=== PATIENT | male | born 1990 | race Caucasian/White ===

== ENCOUNTER 2016-09-09 13:09 | Inpatient (IN) | payer OTHER ==
[~2016-09-09] VITALS: Ht 188 cm; Wt 77.2 kg
[~2016-09-09 13:09] MED LIST: POLY17PO6 PO
[2016-09-09 13:11] VITALS: BP 145/66; PULSE 71; RESP 20; O2SAT 99
[2016-09-09 13:33] LABS: BASOPHILS % (AUTO) 0.3 % (0-3); EOSINOPHILS % (AUTO) 1.8 % (0-5); MONOCYTES % (AUTO) 8.3 % (4-12); Mean Corpuscular Hemoglobin 29.5 pg (27.0-35.0); Mean Corpuscular Volume 85.5 fL (81-100); NEUTROPHILS % (AUTO) 80.3 % (40-74); Platelet Count 256 bil/L (150-400)
--- NOTE | 2016-09-09 13:55 | ED.REPORT ---
HPI-Abd Pain M Under 40 Date of Service September 09, 2016 ED Provider: Dr. Bhupendra Aparicio MD Patient is a 26 year old male with a history of abdominal discomfort who [facility] complaining of intermittent periumbilical abdominal pain that began 3 days ago. His pain has been constant since onset and is exacerbated by movement. His symptoms became increasingly worse after eating lunch. He also reports persistent nausea without any episodes of emesis. He denies chest pain. He reports similar episodes that were self limited over the past year but has not sought medical care for them other than ER visits. Nursing Notes Stated Complaint: ABD PAIN Chief Complaint: Male Abdominal Pain Nursing Notes Reviewed: Yes Allergies: Coded Allergies: codeine (Verified Allergy, Intermediate, VIOLENT REACTION, 03/18/16) Scheduled Polyethylene Glycol 3350 (Miralax) 17 Gm Powd.pack 17 GM PO DAILY General Time Seen by MD: 13:54 Chief Complaint Abdominal pain Hx Obtained From: Patient Arrived By: Police Sudden in Onset?: No Onset Occurred: 3 days ago Symptom Duration: Since onset Progression since Onset: Constant Location: : Periumbilical Quality: Painful Radiation: : Does not radiate Severity: Current: Moderate Severity: Maximum: Moderate Associated with: Reports: Nausea, Denies: Vomiting Pertinent Negative: Pt denies other symptoms Exacerbated by: Eating, Movement Recent Healthcare: No recent doctor visit, No recent hospitalization Past Medical History Past Medical History Chronic abdomial pains Reports: Migraines Past Surgical History Denies Smoking History Current Every Day Smoker Social History Currently in [facility] Drug Use: Meth Other Social History: Local resident Ambulatory Status Independent Review of Systems Constitutional: Denies: Chills, Fever Cardiovascular: Denies: Chest pain GI: Reports: Abdominal pain, Nausea, Denies: Vomiting Complete sys rev & neg: except as marked. Physical Exam Initial Vital Signs Vital Signs (First) Date Time Temp Pulse Resp B/P Pulse Ox O2 Delivery O2 Flow Rate FiO2 09/09/16 13:11 36.5 71 20 145/66 99 Room Air Initial VS: Reviewed Head / Eyes: Atraumatic, Normocephalic, PERRL Neck: Supple, Non-tender, Full range of motion Extremities: Vascular intact, Neuro intact, No swelling, No tenderness Skin: Warm, Dry, No cyanosis Neurologic: Alert, Oriented, Nonfocal Psychiatric: Mood/affect normal, Behavior normal, Normal thought content General/Constitutional: Awake, Alert Respiratory / Chest: Atraumatic, Breath sounds NL, Breath sounds = bilat, No respiratory distress Cardiovascular: Heart rate NL, Regular rhythm, Heart sounds NL Abdomen: Atraumatic, Soft Tenderness/Guarding/Rebound: Positive: Guarding voluntary, Rebound diffuse, Tender diffuse, Tender periumbilical Back: Atraumatic, Inspection NL Interpretation & Diagnostics ULTRASOUND Appendix Read by Radiology IMPRESSION: Distended appendix with overlying tenderness, suggestive of appendicitis. Assessment of compressibility was not possible secondary to posterior migration of the appendix on compression. Dictated by: Kajal Araujo M.D. on 09/09/2016 at 15:25 Lab Results Interpretation Result Diagram: 09/09/16 1315 09/09/16 1315 Test 09/09/16 13:15 09/09/16 13:35 White Blood Count 8.7th/mm3 (3.8-10.1) Red Blood Count 4.95mil/mm3 (4.40-5.80) Hemoglobin 14.6g/dL (13.8-17.2) Hematocrit 42.3% (41.0-50.0) Mean Corpuscular Volume 85.5fL (81-100) Mean Corpuscular Hemoglobin 29.5pg (27.0-35.0) Mean Corpuscular Hemoglobin Concent 34.5% (32.0-37.0) Red Cell Distribution Width 12.6% (12.3-15.4) Platelet Count 256bil/L (150-400) Neutrophils (%) (Auto) 80.3% (40-74) Lymphocytes (%) (Auto) 9.2% (14-46) Monocytes (%) (Auto) 8.3% (4-12) Eosinophils (%) (Auto) 1.8% (0-5) Basophils (%) (Auto) 0.3% (0-3) Sodium Level 135mEq/L (134-144) Potassium Level 4.1mEq/L (3.5-5.2) Chloride Level 95mEq/L (97-108) Carbon Dioxide Level 26mmol/L (18-29) Blood Urea Nitrogen 15mg/dL (6-20) Creatinine 0.81mg/dL (0.76-1.27) Estimat Glomerular Filtration Rate 122mL/min (>59) Glucose Level 177mg/dL (60-99) Calcium Level 9.1mg/dL (8.5-10.1) Total Bilirubin 0.3mg/dL (0.0-1.2) Aspartate Amino Transf (AST/SGOT) 22U/L (0-50) Alanine Aminotransferase (ALT/SGPT) 13U/L (0-44) Alkaline Phosphatase 62U/L (25-150) Total Protein 7.0g/dL (6.4-8.4) Albumin 4.1g/dL (3.4-5.0) Lipase 24U/L (13-60) Hold Bryant Top Tube Received (Received) Hold Urine Received (Received) Urinalysis Interpretation Urinalys reviewed and NL CT Abd / Pelvis Interpretation IMPRESSION: 1. Appendix is not seen. 2. Findings which are suggestive of Crohn's disease, with thickening of the terminal ileum, as well as a small bowel-small bowel fistula. 3. Severe distention of the distal ileum, indicating obstruction. 4. Short segment of small bowel to small bowel intussusception within the left hemiabdomen, likely representing a transient, incidental phenomenon, with no evidence of proximal small bowel distention. 5. Small amount of free fluid within the pelvis, which could indicate reactive changes secondary to peritoneal inflammation, versus small bowel rupture. 6. Findings discussed with Dr. Aparicio on 09.09.16 at 1652 hrs. Dictated by: Kajal Araujo M.D. on 09/09/2016 at 16:37 Study type: Abdominal CT IV contrast, Abdom CT oral contrast Interpretation / Wet Read by: Interpret - Radiologist Re-Eval/Medical Decision Re-Evaluation/Progress #1: Time of Eval: 15:54 Re-Evaluation/Progress Note: Patient is rechecked and is resting comfortably. He is informed of his results and plan to obtain CT. Re-Evaluation/Progress #2: Time of Eval: 18:01 Patient Status: Condition improved Re-Evaluation/Progress Note: Pt is informed of his negative CT results and the treatment plan to admit. He understands and agrees with the intended treatment plan. Consultation #1: Referral / Consult Name: Kenyon Henao MD Consulted With: Surgeon Call Returned at: 15:54 Form Setter [employer] Pan Forms: Agrees with eval, Agrees with plan Consultation #2: Referral / Consult Name: Bharath Moran MD Consulted With: Hospitalist Call Returned at: 18:03 Form Setter [employer] Forms: Will see patient, Agrees with eval, Agrees with plan, Accepts admit Consultation #3: Referral / Consult Name: Ton Swain MD Consulted With: Surgeon Call Returned at: 18:12 Form Setter [employer] Forms: Will see patient, Agrees with eval, Agrees with plan Note: Agrees to consult on patient Consultation #4: Referral / Consult Name: Madhu Bonilla MD Consulted With: Hospitalist Form Setter [employer] Pan Forms: Accepts admit Counseled Regarding: Diagnosis, Lab results, Need for admission Patient Discharge & Departure Primary Impression: Ileitis Disposition: ADMITTED TO HOSPITAL Discharge Condition All VS Reviewed: Yes Condition: Improved Referrals: Sukhi Baeza MD (PCP) Scribe Attestation Portions of this note were transcribed by Giovana Serna. I, Dr. Aparicio personally performed the history, physical exam and medical decision-making; I reviewed and confirmed the accuracy of the information in the transcribed note. Signed by: Shalonda Amaral, 09/09/16 0334. copies to: Sukhi Baeza MD, Kirk H MD September 09, 2016 13:55 GIOVANA SERNA September 09, 2016 14:22
[2016-09-09] MEDS ORDERED: 0.9% Sodium Chloride 1,000 ML IV ONE (14:21)
[2016-09-09] MEDS ORDERED: Iohexol 300 mg/mL 30 mL Inj PO ONE (14:25)
[2016-09-09] MEDS ORDERED: Ondansetron 2 mg/mL 2 mL Inj IVPUSH PRN ×3 (14:25→18:40)
[2016-09-09] MEDS ORDERED: Pantoprazole 4 mg/mL 10 mL Inj IVPUSH ONE (14:25)
--- NOTE | 2016-09-09 15:28 | DRSVH ---
PROCEDURE: US APPENDIX INDICATIONS: Acute abdominal pain TECHNIQUE: Real-time focused scanning was performed of the abdomen with attention to the appendix, with image do cumentation. COMPARISON: None. FINDINGS: The appendix is visualized, and demonstrates a maximal short axis diameter of 9 mm at the tip. Mural hyperemia and surrounding echogenic fat are present. There is tenderness present on exam. Appendicolith is not seen. No complex nor simple free fluid. No regional adenopathy. Assessment of co mpressibility is limited, as the appendix migrates posteriorly with compression. IMPRESSION: Distended appendix with overlying tenderness, suggestive of appendicitis. Assessment of c ompressibility was not possible secondary to posterior migration of the appendix on compression. Dictated by: Kajal Araujo M.D. on 09/09/2016 at 15:25 Approved by: Kajal Araujo M.D. on 09/09/2016 at 15:26
--- NOTE | 2016-09-09 16:55 | DRSVH ---
PROCEDURE: CT ABDOMEN AND PELVIS WITH CONTRAST ([id number]) INDICATIONS: Appy TECHNIQUE: After the administration of oral and intravenous contrast, 5 mm thick sections acquired from the diap hragms to the symphysis. 5 mm thick coronal and sagittal reformats were performed. For radiation do se reduction, the following was used: automated exposure control, adjustment of mA and/or kV accordi ng to patient size. COMPARISON: [facility], US, US APPENDIX, 09/09/2016, 14:53. FINDINGS: Image quality: Excellent. ABDOMEN: Lung bases: Lung bases are clear. Heart size is normal. Solid organs: Liver and spleen are normal in size and enhancement. Gallbladder is within normal shrestha its. Biliary system is non-dilated. Pancreas enhances normally. No adrenal nodules. Kidneys are n ormal in size and enhancement, without hydronephrosis. Peritoneum and bowel: The stomach is nondistended. There is a short segment of small bowel to small bowel intussusception within the left hemiabdomen, without evidence of proximal bowel distention, lik elier representing a transient and incidental phenomenon. There is severe distention of the distal ileu m, measuring 50 mm diameter. There is moderate thickening of the terminal ileum. There appears to be a small bowel-small bowel fistula between 2 adjacent loops of terminal ileum within the mid pelvis, a s denoted on the montage panel. There is moderate thickening of the terminal ileum just distal to thi s region. The appendix is not seen. The colon is decompressed. No pneumoperitoneum. There is a small amount of fluid within the pelvis. Nodes and vessels: No retroperitoneal or mesenteric adenopathy. Aorta and inferior vena cava are no rmal in caliber. Miscellaneous: No ventral hernias. PELVIS: Genitourinary: Bladder wall thickness is normal. Miscellaneous: No inguinal hernias or adenopathy. Bones: No suspicious bony lesions. No vertebral body compression fractures. IMPRESSION: 1. Appendix is not seen. 2. Findings which are suggestive of Crohn's disease, with thickening of the terminal ileum, as well a s a small bowel-small bowel fistula. 3. Severe distention of the distal ileum, indicating obstruction. 4. Short segment of small bowel to small bowel intussusception within the left hemiabdomen, likely re presenting a transient, incidental phenomenon, with no evidence of proximal small bowel distention. 5. Small amount of free fluid within the pelvis, which could indicate reactive changes secondary to p eritoneal inflammation, versus small bowel rupture. 6. Findings discussed with Dr. Aparicio on 09.09.16 at 1652 hrs. Dictated by: Kajal Araujo M.D. on 09/09/2016 at 16:37 Approved by: Kajal Araujo M.D. on 09/09/2016 at 16:53
[2016-09-09 17:11] VITALS: BP 113/97; PULSE 73; RESP 16; O2SAT 98
[2016-09-09] MEDS ORDERED: 0.9% Sodium Chloride 1,000 ML IV SCH (18:24)
[2016-09-09] MEDS ORDERED: Alum-Mag Hydrox-Simeth 30 mL Suspension PO PRN ×2 (18:25→18:40)
[2016-09-09] MEDS ORDERED: HYDROmorphone 1 mg/mL Inj IVPUSH PRN (18:40)
[2016-09-09] MEDS ORDERED: Polyethylene Glycol (PEG) 17 Gm Powder PO PRN (18:40)
--- NOTE | 2016-09-09 18:44 | PCM.HPMED ---
Subjective Date of Service September 09, 2016 Primary Provider: Admitting Physician: Latricia Nguyen DO Primary Care Physician: Sukhi Baeza MD Attending Physician: Latricia Nguyen DO Admit Status: From the Emergency Department, Full Admit, Non-Telemetry Chief Complaint: Abdominal pain, CT confirmed ileitis. History of Present Illness: This is a 26-year-old male who is currently an [facility]. He presented with acute abdominal pain which is. Umbilical. This is been going on for about a day. No associated nausea vomiting or diarrhea. No anorexia, fevers chills, or weight loss. He has however noted intermittent abdominal pain for the last year. He denies a family history of inflammatory bowel disease. He is had no previous surgical intervention on the abdomen. He denies any abdominal bloating. No nausea. Denies any hematuria, dysuria, polyuria. No flank pain. The pain is not aggravated by anything nor is anything obviously help but IV PAIN MEDICINE IN THE EMERGENCY DEPARTMENT. A CT SCAN WAS OBTAINED TO RULE OUT APPENDICITIS BUT INSTEAD IS NOTABLE FOR ILEITIS CONSISTENT WITH CROHN'S DISEASE WELL A POSSIBLE SMALL BOWEL TO SMALL BOWEL FISTULA. THERE WAS A QUESTION OF INTUSSUSCEPTION. THE CASE HAS BEEN DISCUSSED WITH GENERAL SURGERY ON-CALL, DR. Henao. A GI CONSULT IS ALSO BEEN REQUESTED. Review of Systems: No headache, visual changes, rhinorrhea, cough, sore throat. No hearing changes. No anxiety. No depression. All systems reviewed and otherwise negative except as noted on history of present illness. Allergies Coded Allergies: codeine (Verified Allergy, Intermediate, VIOLENT REACTION, 03/18/16) Home Medications None PMH Methamphetamine abuse, quit several months ago. Nicotine dependence, smoker. Quit several weeks ago. Surgical History None Family History Negative for Crohn's or ulcerative colitis Social History Occupation: incarcerated. Has a girlfrien Hx Alcohol Use: No Hx Substance Use: Yes (Hx of meth) Hx Tobacco Use: No Living Arrangement: with Family Exam Vital Signs Vital Sign - Last Date Time Temp Pulse Resp B/P Pulse Ox O2 Delivery O2 Flow Rate FiO2 09/09/16 17:11 73 16 113/97 98 Room Air 09/09/16 13:11 36.5 Exam Oriented 3. No distress. Fluent speech. Normal affect. Normal skull. Normal nose and ears. Anicteric sclera, symmetric pupils Oropharynx is unremarkable, no facial droop. Neck is supple, normal thyroid. No adenopathy. Lungs are clear, normal effort rate. Heart is regular without murmur gallop or rub. Abdomen soft, nondistended or tender. With the exception of some very very mild periumbilical tenderness without guarding or rebound. No masses. Extremities are free of pedal edema. Good radial and pedal pulses. Skin is free of rash, lesions. No petechiae or ecchymosis. Joints are grossly normal. Cranial nerves are grossly normal. Motor strength is normal in all extremities. Normal muscular tone. The patient has multiple tattoos over the arms. He is in a [facility] jumpsuit and has caused on his ankles. Lab and Diagnostics Result Diagram: 09/09/16 1315 09/09/16 1315 X-Rays, CTs and MRIs CT scan of abdomen IMPRESSION: 1. Appendix is not seen. 2. Findings which are suggestive of Crohn's disease, with thickening of the terminal ileum, as well as a small bowel-small bowel fistula. 3. Severe distention of the distal ileum, indicating obstruction. 4. Short segment of small bowel to small bowel intussusception within the left hemiabdomen, likely representing a transient, incidental phenomenon, with no evidence of proximal small bowel distention. 5. Small amount of free fluid within the pelvis, which could indicate reactive changes secondary to peritoneal inflammation, versus small bowel rupture. 6. Findings discussed with Dr. Aparicio on 09.09.16 at 1652 hrs. Dictated by: aKjal Araujo M.D. on 09/09/2016 at 16:37 Approved by: Kajal Araujo M.D. on 09/09/2016 at 16:53 Assessment & Plan Abdominal pain, with evidence of terminal ileitis and possible fistula from small bowel to small bowel. This is consistent with possible Crohn's. This is present on admission. The plan is nothing by mouth, IV analgesia, antiemetics, GI consultation for consideration of IV steroids which be left to them. Remote methamphetamine abuse, not currently active. Remote tobacco dependence with smoking, not currently present. The patient is full resuscitation He is expected to be in the hospital for 2 nights, inpatient status. Pain Evaluation: Adequate Pain Control Resuscitation Status: CPR: Attempt Resuscitation Time spent 40 minutes Madhu Bonilla MD September 09, 2016 18:44
[2016-09-09 19:37] VITALS: BP 116/63; PULSE 61; RESP 16; O2SAT 100
[2016-09-09 20:00] VITALS: BP 106/63; PULSE 63; RESP 20; O2SAT 97
[2016-09-09] MEDS: 0.9% Sodium Chloride 1,000 ML IV SCH (20:16)
--- NOTE | 2016-09-09 21:47 | NUR ---
Admission Pt arrived to the unit calm, cooperative, and with no complaints of pain or nausea. Pt's girlfriend, baby and friend at the bedside. NS started. Pt independent in room. Maintain NPO status. Oriented to plan of care, call light, hospital routines, hourly rounding ongoing. Addendum: 09/10/16 at 0508 by NEO PALACIO Pt remained nausea and pain free throughout shift. Observed sleeping.
[2016-09-10] MEDS: Heparin 5,000 Unit/mL Inj SUBQ SCH ×2 (00:09→08:30)
[2016-09-10 01:36] VITALS: BP 93/64; PULSE 70; RESP 18; O2SAT 98
[2016-09-10 04:58] LABS: BASOPHILS % (AUTO) 0.7 % (0-3); EOSINOPHILS % (AUTO) 4.9 % (0-5); Mean Corpuscular Hemoglobin 29.4 pg (27.0-35.0); Mean Corpuscular Volume 87.6 fL (81-100); NEUTROPHILS % (AUTO) 56.9 % (40-74); Platelet Count 219 bil/L (150-400)
[2016-09-10] MEDS: 0.9% Sodium Chloride 1,000 ML IV SCH (06:10)
[2016-09-10 07:21] VITALS: BP 98/68; PULSE 61; RESP 16; O2SAT 96
--- NOTE | 2016-09-10 09:47 | CONS ---
[address] [address] CONSULTATION REPORT PATIENT: ERICA VAN : 1990 MR#: [id number] ADMIT: 09/09/2016 JOB ID: [id number] DATE OF SERVICE: 09/10/2016 REASON FOR CONSULTATION: 1. Abdominal pain. 2. Abnormal CT scan. HISTORY OF PRESENT ILLNESS: A 26-year-old, male with a history of methamphetamine use a year ago, with a history of incarceration presents here for consultation for abdominal pain and abnormal CT scan of the abdomen. The patient presented to the emergency department on September 09, 2016 for periumbilical pain, 10/10, sharp, stabbing pain, intermittent, lasts for 30 minutes, decreases with food. Unknown if it decreases with a bowel movement. The patient states it has been going on for the past 1 year. The patient never had an EGD or colonoscopy and denies family history of colon cancer, inflammatory bowel disease, or celiac disease. The patient underwent a CT scan of the abdomen and pelvis with contrast performed on September 09, 2016 which showed a thickened terminal ileum as well as a small bowel to small bowel fistula that was seen, severe distention of the distal ileum, short segment small bowel to small bowel intussusception with left irineo-abdomen representing a transient effect. The patient also had an ultrasound of the appendix on September 09, 2016 show a distended appendix suggestive of appendicitis. The patient denies rectal bleeding, nausea, vomiting, hematemesis, change in bowel habits, or unintentional weight loss. The patient states he has 1 bowel movement per day, well-formed. The patient presents for further evaluation. PAST MEDICAL HISTORY: Methamphetamine use quit one year ago. He is incarcerated. PAST SURGICAL HISTORY: None. MEDICATIONS: None. ALLERGIES: CODEINE. SOCIAL HISTORY: History of methamphetamine use. No smoking or alcohol. FAMILY HISTORY: Negative for colon cancer, inflammatory bowel disease, or celiac disease. REVIEW OF SYSTEMS: The patient denies headache, blurred vision, nausea, vomiting, chest pressure, shortness of breath. Positive for orthopnea. No skin rash. PHYSICAL EXAMINATION: Vital signs upon presentation: Temperature 36.6, pulse 61, respiratory rate 16, satting 96% on room air. Blood pressure 98/68. General in no acute distress. Head no scars. Anicteric. Throat supple. Lungs clear to auscultation bilaterally. Cardiovascular regular rate. Abdomen soft, nondistended. Positive right lower quadrant and periumbilical pain. Normoactive bowel sounds. Extremities no cyanosis, clubbing, or edema. LABORATORIES: Sodium 142, potassium 4.1, chloride 105, bicarb 27, BUN 15, creatinine 0.8. Glucose of 91. Calcium 8.6, total bili 0.2, AST nl, ALT 10, alk phos 53, total bili protein 5.7, albumin 3.5, lipase 24. White count 4.5, hemoglobin 12.8, hematocrit 38, MCV 87, platelet count 219. ASSESSMENT AND PLAN: A 46-year-old, male with of history incarceration and methamphetamine abuse in the past, quit 1 year ago presents here with periumbilical right lower quadrant pain. Abnormal CT scan showed thickening of the terminal ileum with a small bowel fistula and intussusception. Differential diagnosis includes inflammatory bowel disease such as Crohn disease versus intussusception. It is odd that the patient does have findings suggestive of Crohn disease on CT abdomen with fistula without diarrhea. In any case, I recommend an upper GI with small bowel series and an EGD and colonoscopy. The patient should also be on Cipro and Flagyl for 14 days if this is truly due to a fistula from a Crohn's flare. After presenting these options to the patient, the patient states he would rather have these done as an outpatient. He has things that he needs to get done tomorrow. I have offered the patient to have these things done as an inpatient which i recommend , but the patient wishes to have these as an outpatient. My Office will give the patient a phone call on Sunday to set him up to follow up with GI clinic and to be set up for an EGD and colonoscopy as an outpatient per pt wishes. We will sign off. [facility]
[2016-09-10] MEDS ORDERED: METR500T19 PO (10:15)
[2016-09-10] MEDS ORDERED: CIPR-231 PO (10:15)
--- NOTE | 2016-09-10 10:20 | PCM.DC.MED ---
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 Severe distention of the distal ileum, indicating obstruction; possible bowel perforation Consultations GI, also discussed with Surgery Procedures XRay, CTs & MRIs CT scan of abdomen IMPRESSION: 1. Appendix is not seen. 2. Findings which are suggestive of Crohn's disease, with thickening of the terminal ileum, as well as a small bowel-small bowel fistula. 3. Severe distention of the distal ileum, indicating obstruction. 4. Short segment of small bowel to small bowel intussusception within the left hemiabdomen, likely representing a transient, incidental phenomenon, with no evidence of proximal small bowel distention. 5. Small amount of free fluid within the pelvis, which could indicate reactive changes secondary to peritoneal inflammation, versus small bowel rupture. 6. Findings discussed with Dr. Aparicio on 09.09.16 at 1652 hrs. Dictated by: Kajal Araujo M.D. on 09/09/2016 at 16:37 Approved by: Kajal Araujo M.D. on 09/09/2016 at 16:53 Brief History Hospital Course This is a 26-year-old male with past medical history of 1 year of intermittent abdominal pain, meth use, tobacco use presented to the hospital with acute mid abdominal pain of 1 day duration. He also admitted he had intermittent abdominal pain for the last year. Ct scan of the abdomen showed Severe distention of the distal ileum, indicating obstruction, Short segment of small bowel to small bowel intussusception within the left hemiabdomen, likely representing a transient, incidental phenomenon, with no evidence of proximal small bowel distention, Small amount of free fluid within the pelvis, which could indicate reactive changes secondary to peritoneal inflammation, versus small bowel rupture. Patient was treated with IVF, NPO, pain medication. CT findings where discussed with surgery yesterday. GI was consulted. Patient was treated with IVF, pain and nausea medications. Next day patient requested to be discharge home. His family members and a little baby were present in the room in the morning. Patient was not complaining of any abdominal pain and stated that he got much better and ready for discharge. When I palpated his stomach he had pretty significant mid abdominal pain. Patient stated that was getting much better and he was ready to go home . I discussed these findings and also CT results with surgeon Dr Henao. He advised that the patient should stay in the hospital and have endoscopies done while he is inpatient. I discussed the case with Detector Car Operator who saw the patient this morning and who also advised the patient to complete evaluation and start treatment while he is in the hospital. Detector Car Operator discussed this with the patient as well. I had a prolonged discussion with the patient and his family members regarding further plan of care, goals of care, risks of leaving AMA including sepsis, bowel perforation, worsening of possible current bowel perforation, disability or even result of untreated and undiagnosed abdominal problems. Patient was adamant to leave the hospital AMA. GI physician suggested to start the patient on oral antibiotics ciprofloxacin and metronidazole, and follow-up with him in clinic on Sunday if the patient leaves AGAINST MEDICAL ADVICE. Patient did not want to stay in the hospital for further evaluation and treatment. His family supported him and this decision. They asked me if he could come back to the hospital if he gets worse. I informed the patient and his family that he could come back to the emergency department for further evaluation and management but it would be dangerous to leave the hospital without proper elevation, diagnosis and treatment plan. Patient wanted to leave the hospital AGAINST MEDICAL ADVICE anyway. His family and friends support him in this decision. Patient was given prescription for ciprofloxacin and metronidazole PO , he signed AMA form, I also discussed possible side effects of ciprofloxacin and metronidazole. He also received additional printed information about his new medications. Exam Vital Signs (Last) Date Time Temp Pulse Resp B/P Pulse Ox O2 Delivery O2 Flow Rate FiO2 09/10/16 07:21 36.6 61 16 98/68 96 Room Air Exam PHYSICAL EXAM: GENERAL: Alert, not in distress HEAD: atraumatic, normocephalic, no bruises. EYES: OSITO, EOMI, anicteric, able to fully open and close eyelids SKIN: Skin color normal, turgor normal. No visible rashes or lesions. EAR, NOSE, MOUTH, THROAT: Lips, oral mucosa, tongue gums, oropharynx are moist , pink, no lesions. NECK: no jugulovenous distention, supple; ROM normal. ABDOMEN: Abdomen soft, moderate tenderness in mid abdomen. BS normal. No masses or organomegaly. MUSCULOSKELETAL: ROM full, muscles are not tender EXTREMITIES: nopitting edema in LE, no deformities, clubbing or skin discoloration. NEURO: Alert, oriented X 3, Sensation grossly intact., Cranial nerves II-XII intact, Grossly normal motor function. PULSES: 2+ radial, 2+ posterial tibial, 2+ dorsalis pedis, 2+ carotid REVIEW OF SYSTEMS: GENERAL: no malaise, no fevers., SEE HPI HEENT: Negative for frequent or significant headaches, No changes in hearing or vision, no nose bleeds or other nasal problems All other reviewed and negative other than HPI. Test 09/09/16 13:15 09/09/16 13:35 09/09/16 19:23 09/10/16 04:45 Lipase 24U/L (13-60) Hold Urine Received (Received) Hold Purple Top Tube Received (Received) Hold Blue Top Tube Received (Received) Hold Red Top Tube Received (Received) Hold Colcord Top Tube Received (Received) Hold Bryant Top Tube Received (Received) White Blood Count 4.5th/mm3 (3.8-10.1) Red Blood Count 4.36mil/mm3 (4.40-5.80) Hemoglobin 12.8g/dL (13.8-17.2) Hematocrit 38.2% (41.0-50.0) Mean Corpuscular Volume 87.6fL (81-100) Mean Corpuscular Hemoglobin 29.4pg (27.0-35.0) Mean Corpuscular Hemoglobin Concent 33.5% (32.0-37.0) Red Cell Distribution Width 12.7% (12.3-15.4) Platelet Count 219bil/L (150-400) Neutrophils (%) (Auto) 56.9% (40-74) Lymphocytes (%) (Auto) 22.3% (14-46) Monocytes (%) (Auto) 15.0% (4-12) Eosinophils (%) (Auto) 4.9% (0-5) Basophils (%) (Auto) 0.7% (0-3) Sodium Level 142mEq/L (134-144) Potassium Level 4.1mEq/L (3.5-5.2) Chloride Level 105mEq/L (97-108) Carbon Dioxide Level 27mmol/L (18-29) Blood Urea Nitrogen 15mg/dL (6-20) Creatinine 0.86mg/dL (0.76-1.27) Estimat Glomerular Filtration Rate 114mL/min (>59) Glucose Level 91mg/dL (60-99) Calcium Level 8.6mg/dL (8.5-10.1) Total Bilirubin 0.2mg/dL (0.0-1.2) Aspartate Amino Transf (AST/SGOT) 15U/L (0-50) Alanine Aminotransferase (ALT/SGPT) 10U/L (0-44) Alkaline Phosphatase 53U/L (25-150) Total Protein 5.7g/dL (6.4-8.4) Albumin 3.5g/dL (3.4-5.0) Discharge Medications Discharge Medications Ciprofloxacin (Cipro) 500 Mg Tablet 500 MG PO BID Prescribed by: CARLA SHUKLA MD Metronidazole (Metronidazole) 500 Mg Tablet 500 MG PO QID Prescribed by: MD Carla BURCIAGA Andriy MD September 10, 2016 10:20
--- NOTE | 2016-09-10 10:26 | NUR ---
AMA Discharge Pt discharged AMA despite talking with MD and GI about serious risk r/t diagnosis including sepsis, perforation, serious disability or . Pt states he understands and will call GI on Sunday. Pt given print out with GI address and phone number and instructed to call on Sunday. Pt seems elated to be leaving and not at all concerned over seriousness of diagnosis, stating "I can't wait to hangout in the sun with my bro." Pt states only minimal pain and is passing gas. Instructed to return if worsening symptoms and girlfriend acknowledges that she will bring him back if needed. Prescriptions given and care notes for meds as well. IV removed intact, pt has all belongings.
--- NOTE | 2016-09-10 13:02 | PCM.PNMED ---
Subjective Date of Service September 10, 2016 Subjective This is a 26-year-old male with past medical history of 1 year of intermittent abdominal pain, meth use, tobacco use presented to the hospital with acute mid abdominal pain of 1 day duration. He also admitted he had intermittent abdominal pain for the last year. Ct scan of the abdomen showed Severe distention of the distal ileum, indicating obstruction, Short segment of small bowel to small bowel intussusception within the left hemiabdomen, likely representing a transient, incidental phenomenon, with no evidence of proximal small bowel distention, Small amount of free fluid within the pelvis, which could indicate reactive changes secondary to peritoneal inflammation, versus small bowel rupture. Patient was treated with IVF, NPO, pain medication. CT findings where discussed with surgery yesterday. GI was consulted. Patient was treated with IVF, pain and nausea medications. Next day patient requested to be discharge home. His family members and a little baby were present in the room in the morning. Patient was not complaining of any abdominal pain and stated that he got much better and ready for discharge. When I palpated his stomach he had pretty significant mid abdominal pain. Patient stated that was getting much better and he was ready to go home . I discussed these findings and also CT results with surgeon Dr Henao. He advised that the patient should stay in the hospital and have endoscopies done while he is inpatient. I discussed the case with Director Of Player Personnel who saw the patient this morning and who also advised the patient to complete evaluation and start treatment while he is in the hospital. Director Of Player Personnel discussed this with the patient as well. I had a prolonged discussion with the patient and his family members regarding further plan of care, goals of care, risks of leaving AMA including sepsis, bowel perforation, worsening of possible current bowel perforation, disability or even result of untreated and undiagnosed abdominal problems. Patient was adamant to leave the hospital AMA. GI physician suggested to start the patient on oral antibiotics ciprofloxacin and metronidazole, and follow-up with him in clinic on Sunday if the patient leaves AGAINST MEDICAL ADVICE. Patient did not want to stay in the hospital for further evaluation and treatment. His family supported him and this decision. They asked me if he could come back to the hospital if he gets worse. I informed the patient and his family that he could come back to the emergency department for further evaluation and management but it would be dangerous to leave the hospital without proper elevation, diagnosis and treatment plan. Patient wanted to leave the hospital AGAINST MEDICAL ADVICE anyway. His family and friends support him in this decision. Patient was given prescription for ciprofloxacin and metronidazole PO , he signed AMA form, I also discussed possible side effects of ciprofloxacin and metronidazole. He also received additional printed information about his new medications. Exam Vital Signs Vital Sign - Last Date Time Temp Pulse Resp B/P Pulse Ox O2 Delivery O2 Flow Rate FiO2 09/10/16 07:21 36.6 61 16 98/68 96 Room Air Intake and Output 09/09/16 09/09/16 09/10/16 Cumulative From/Thru 15:00 23:00 07:00 09/09/16 13:11 - 09/10/16 06:37 Intake Total 1000 ml 975 ml 1975 ml Balance 1000 ml 975 ml 1975 ml IV Total 1000 ml 975 ml 1975 ml Exam GENERAL: Alert, not in distress HEAD: atraumatic, normocephalic, no bruises. EYES: OSITO, EOMI, anicteric, able to fully open and close eyelids SKIN: Skin color normal, turgor normal. No visible rashes or lesions. EAR, NOSE, MOUTH, THROAT: Lips, oral mucosa, tongue gums, oropharynx are moist , pink, no lesions. NECK: no jugulovenous distention, supple; ROM normal. ABDOMEN: Abdomen soft, moderate tenderness in mid abdomen. BS normal. No masses or organomegaly. MUSCULOSKELETAL: ROM full, muscles are not tender EXTREMITIES: nopitting edema in LE, no deformities, clubbing or skin discoloration. NEURO: Alert, oriented X 3, Sensation grossly intact., Cranial nerves II-XII intact, Grossly normal motor function. PULSES: 2+ radial, 2+ posterial tibial, 2+ dorsalis pedis, 2+ carotid REVIEW OF SYSTEMS: GENERAL: no malaise, no fevers., SEE HPI HEENT: Negative for frequent or significant headaches, No changes in hearing or vision, no nose bleeds or other nasal problems All other reviewed and negative other than HPI. IVs and Medications Medications Reviewed: Medications were reviewed in detail Lab and Diagnostics Result Diagram: 09/10/1644409/[id number] X-Rays, CTs and MRIs CT scan of abdomen IMPRESSION: 1. Appendix is not seen. 2. Findings which are suggestive of Crohn's disease, with thickening of the terminal ileum, as well as a small bowel-small bowel fistula. 3. Severe distention of the distal ileum, indicating obstruction. 4. Short segment of small bowel to small bowel intussusception within the left hemiabdomen, likely representing a transient, incidental phenomenon, with no evidence of proximal small bowel distention. 5. Small amount of free fluid within the pelvis, which could indicate reactive changes secondary to peritoneal inflammation, versus small bowel rupture. 6. Findings discussed with Dr. Aparicio on 09.09.16 at 1652 hrs. Dictated by: Kajal Araujo M.D. on 09/09/2016 at 16:37 Approved by: Kajal Araujo M.D. on 09/09/2016 at 16:53 Assessment & Plan Acute illeitis, small bowell fistula, possible perforation - GI following - discussed with surgery Plan - start antibiotics, endoscopy with biopsy - IV and PO opioids for pain, zofran for nausea, IVF. Addendum - patient left the hospital AMA Pain Evaluation: Adequate Pain Control Resuscitation Status: CPR: Attempt Resuscitation Time spent 45 min spent examining the patient, counseling the patient and family, discussing plan of care with the superintendent generating plant and surgeon, coordinating care on the floor. " Patrick Adkins MD September 10, 2016 13:02 Juliano. He advised that the patient should stay in the hospital and have endoscopies done while he is inpatient. I discussed the case with Director Of Player Personnel who saw the patient this morning and who also advised the patient to complete evaluation and start treatment while he is in the hospital. Director Of Player Personnel discussed this with the patient as well. I had a prolonged discussion with the patient and his family members regarding further plan of care, goals of care, risks of leaving AMA including sepsis, bowel perforation, worsening of possible current bowel perforation, disability or even result of untreated and undiagnosed abdominal problems. Patient was adamant to leave the hospital AMA. GI physician suggested to start the patient on oral antibiotics ciprofloxacin and metronidazole, and follow-up with him in clinic on Sunday if the patient leaves AGAINST MEDICAL ADVICE. Patient did not want to stay in the hospital for further evaluation and treatment. His family supported him and this decision. They asked me if he could come back to the hospital if he gets worse. I informed the patient and his family that he could come back to the emergency department for further evaluation and management but it would be dangerous to leave the hospital without proper elevation, diagnosis and treatment plan. Patient wanted to leave the hospital AGAINST MEDICAL ADVICE anyway. His family and friends support him in this decision. Patient was given prescription for ciprofloxacin and metronidazole PO , he signed AMA form, I also discussed possible side effects of ciprofloxacin and metronidazole. He also received additional printed information about his new medications. Pain Evaluation: Adequate Pain Control Resuscitation Status: CPR: Attempt Resuscitation Patrick Adkins MD September 10, 2016 13:02
== END 2016-09-10 10:20 | disposition left against medical advice (07) | DRG 386 ==
LOC: SED 13:09 → OSC 18:27 → OBSVTOIN 18:27 → OSC 19:55
PROVIDERS: ADMIT Internal Medicine; ATTEND Hospitalist
DX: K50.00 Crohn's disease of small intestine without complications (principal); K63.2 Fistula of intestine; F17.200 Nicotine dependence, unspecified, uncomplicated